=== PATIENT | male | born 1940 | race Caucasian/White ===

== ENCOUNTER → 2017-11-25 08:00 | Outpatient (CLI) | payer MEDICARE, BC, SELFPAY ==
[2017-11-25 09:13] LABS: Add Manual Diff / Slide Review NO; Basophils Percent Auto 0.2 % (0-2); Eosinophils Percent Auto 2.2 % (2-4); Hematocrit 43.7 % (41-53); Lymphocytes Percent Auto 24.3 % (25-40); Mean Corpuscular HGB Conc 34.2 % (30-36); Mean Corpuscular Hemoglobin 31.9 PG (26-34); Mean Corpuscular Volume 93.3 fL (80-100); Monocytes Percent Auto 7.8 % (3-14); Neutrophils Absolute Auto 5200 /uL (3000-5900); Neutrophils Percent Auto 65.5 % (50-75); Platelet Count 247 X10^3/uL (150-400); Red Blood Cell Count 4.69 X10^6/uL (4.5-5.9); Red Cell Distribution Width 13.6 % (11.6-14.8)
[2017-11-25 09:52] LABS: Alanine Aminotransferase 28 IU/L (21-72); Albumin 3.9 g/dL (3.5-5.0); Albumin Globulin Ratio 1.4 (1.0-2.8); Alkaline Phosphatase 75 U/L (38-126); Aspartate Aminotransferase 24 IU/L (17-59); BUN Creatinine Ratio 21.8 (6-22); Bilirubin Total 0.6 mg/dL (0.2-1.3); Calcium 9.4 mg/dL (8.4-10.2); Estimated Glomerular Filt Rate > 60.0 mL/min (>60); Globulin 2.7 g/dL (1.7-4.1); Glucose 101 mg/dL (80-110); HEMOLYSIS < 15 (0-50); Potassium 4.6 mmol/L (3.4-5.1); Sodium 141 mmol/L (137-145); Total Protein 6.6 g/dL (6.3-8.2)
[2017-11-25 09:59] LABS: Uric Acid 8.5 mg/dL (3.5-8.5)
[2017-11-25 10:37] LABS: Cholesterol 177 mg/dL (140-199); HDL Cholesterol 71 mg/dL (40-60); LDL Cholesterol Calculated 96 mg/dL (<100); Triglycerides 50 mg/dL (35-150)
== END ==
PROVIDERS: Specialist/Technologist Athletic Trainer; Family Provider Internal Medicine; PCP Internal Medicine; Visit Provider Dermatology
DX: I10 Essential (primary) hypertension (principal); E78.00 Pure hypercholesterolemia, unspecified; Z79.899 Other long term (current) drug therapy; M12.9 Arthropathy, unspecified; L40.9 Psoriasis, unspecified
CPT/HCPCS: 36415; 80053; 80061; 83735; 84550; 85025

== ENCOUNTER → 2018-12-01 07:56 | Outpatient (CLI) | payer MEDICARE, BC, SELFPAY ==
[2018-12-01 09:17] LABS: Alanine Aminotransferase 21 IU/L (21-72); Albumin 3.9 g/dL (3.5-5.0); Albumin Globulin Ratio 1.6 (1.0-2.8); Alkaline Phosphatase 73 U/L (38-126); Aspartate Aminotransferase 22 IU/L (17-59); BUN Creatinine Ratio 18.2 (6-22); Bilirubin Total 0.3 mg/dL (0.2-1.3); Blood Urea Nitrogen 20 mg/dL (9-20); Calcium 9.2 mg/dL (8.4-10.2); Carbon Dioxide 29 mmol/L (22-32); Chloride 102 mmol/L (98-107); Cholesterol 166 mg/dL (140-199); Estimated Glomerular Filt Rate > 60.0 mL/min (>60); Globulin 2.5 g/dL (1.7-4.1); Glucose 99 mg/dL (80-110); HDL Cholesterol 60 mg/dL (40-60); HEMOLYSIS < 15 (0-50); LDL Cholesterol Calculated 95 mg/dL (<100); Potassium 4.4 mmol/L (3.4-5.1); Sodium 139 mmol/L (137-145); Total Protein 6.4 g/dL (6.3-8.2); Triglycerides 54 mg/dL (35-150)
== END ==
PROVIDERS: Visit Provider Internal Medicine
DX: I10 Essential (primary) hypertension (principal); E78.00 Pure hypercholesterolemia, unspecified
CPT/HCPCS: 36415; 80053; 80061

== ENCOUNTER → 2020-02-07 08:05 | Outpatient (CLI) | payer MEDICARE, OTHER, SELFPAY ==
[2020-02-07 09:00] LABS: Add Manual Diff / Slide Review NO; Basophils Absolute Auto 100 /uL (0-100); Basophils Percent Auto 0.9 % (0-2); Eosinophils Absolute Auto 200 /uL (0-450); Eosinophils Percent Auto 2.7 % (2-4); Hematocrit 43.3 % (41-53); Hemoglobin 14.6 g/dL (13.5-17.5); Lymphocytes Absolute Auto 1800 /uL (1100-4500); Lymphocytes Percent Auto 27.2 % (25-40); Mean Corpuscular HGB Conc 33.7 % (30-36); Mean Corpuscular Volume 94.8 fL (80-100); Monocytes Absolute Auto 600 /uL (0-900); Monocytes Percent Auto 9.3 % (3-14); Neutrophils Absolute Auto 3900 /uL (1500-7000); Neutrophils Percent Auto 59.9 % (50-75); Platelet Count 232 X10^3/uL (150-400); Red Blood Cell Count 4.57 X10^6/uL (4.5-5.9); Red Cell Distribution Width 13.8 % (11.6-14.8); White Blood Cell Count 6.6 X10^3/uL (4.5-11.0)
[2020-02-07 09:37] LABS: Alanine Aminotransferase 23 IU/L (<50); Albumin 4.2 g/dL (3.5-5.0); Albumin Globulin Ratio 1.6 (1.0-2.8); Alkaline Phosphatase 65 U/L (38-126); Aspartate Aminotransferase 34 IU/L (17-59); BUN Creatinine Ratio 20.2 (6-22); Bilirubin Total 0.7 mg/dL (0.2-1.3); Blood Urea Nitrogen 22 mg/dL (9-20); Calcium 9.5 mg/dL (8.4-10.2); Carbon Dioxide 28 mmol/L (22-32); Chloride 104 mmol/L (98-107); Cholesterol 166 mg/dL (140-199); Estimated Glomerular Filt Rate > 60.0 mL/min (>60); Globulin 2.6 g/dL (1.7-4.1); Glucose 108 mg/dL (80-110); HDL Cholesterol 63 mg/dL (40-60); HEMOLYSIS 35 (0-50); LDL Cholesterol Calculated 87 mg/dL (<100); Potassium 4.6 mmol/L (3.4-5.1); Sodium 138 mmol/L (137-145); Total Protein 6.8 g/dL (6.3-8.2); Triglycerides 79 mg/dL (35-150)
== END ==
PROVIDERS: PCP Internal Medicine; Referring Provider Internal Medicine; Visit Provider Internal Medicine
DX: E78.00 Pure hypercholesterolemia, unspecified (principal); I10 Essential (primary) hypertension
CPT/HCPCS: 36415; 80053; 80061; 85025

== ENCOUNTER → 2020-08-01 12:52 | Outpatient (CLI) | payer MEDICARE, OTHER, SELFPAY ==
[2020-08-01] MEDS: COVID-19 VACC #1, MRNA(MOD) 100 MCG/0.5 ML VIAL IM (12:57)
== END ==
PROVIDERS: PCP Internal Medicine; Visit Provider Internal Medicine
DX: Z23 Encounter for immunization (principal)
CPT/HCPCS: 0011A; 91301

== ENCOUNTER → 2020-08-29 13:09 | Outpatient (CLI) | payer MEDICARE, OTHER, SELFPAY ==
[2020-08-29] MEDS: COVID-19 VACC #2, MRNA(MOD) 100 MCG/0.5 ML VIAL IM (13:17)
== END ==
PROVIDERS: PCP Internal Medicine; Visit Provider Internal Medicine
DX: Z23 Encounter for immunization (principal)
CPT/HCPCS: 0012A; 91301

== ENCOUNTER → 2020-12-28 14:40 | Outpatient (CLI) | payer MEDICARE, OTHER, SELFPAY | PROVIDERS: PCP Internal Medicine; Referring Provider Physician Assistant; Visit Provider Physician Assistant | DX: R19.7 Diarrhea, unspecified (principal) | CPT/HCPCS: 87045; 87177; 87899 ==

== ENCOUNTER → 2021-02-07 08:12 | Outpatient (CLI) | payer MEDICARE, OTHER, SELFPAY ==
[2021-02-07 09:22] LABS: Add Manual Diff / Slide Review NO; Basophils Absolute Auto 0 /uL (0-100); Basophils Percent Auto 0.5 % (0-2); Eosinophils Absolute Auto 200 /uL (0-450); Eosinophils Percent Auto 2.6 % (2-4); Hematocrit 41.6 % (41-53); Hemoglobin 14.1 g/dL (13.5-17.5); Lymphocytes Absolute Auto 1700 /uL (1100-4500); Lymphocytes Percent Auto 26.6 % (25-40); Mean Corpuscular HGB Conc 33.9 % (30-36); Mean Corpuscular Hemoglobin 32.1 PG (26-34); Mean Corpuscular Volume 94.7 fL (80-100); Monocytes Absolute Auto 600 /uL (0-900); Monocytes Percent Auto 9.7 % (3-14); Neutrophils Absolute Auto 3900 /uL (1500-7000); Neutrophils Percent Auto 60.6 % (50-75); Platelet Count 240 X10^3/uL (150-400); Red Blood Cell Count 4.39 X10^6/uL (4.5-5.9); Red Cell Distribution Width 13.8 % (11.6-14.8); White Blood Cell Count 6.4 X10^3/uL (4.5-11.0)
[2021-02-07 09:48] LABS: Creatinine Urine Random 168.3 mg/dL
[2021-02-07 09:49] LABS: Alanine Aminotransferase 23 IU/L (<50); Albumin Globulin Ratio 1.7 (1.0-2.8); Alkaline Phosphatase 62 U/L (38-126); Aspartate Aminotransferase 28 IU/L (17-59); BUN Creatinine Ratio 19.8 (6-22); Bilirubin Total 0.5 mg/dL (0.2-1.3); Blood Urea Nitrogen 21 mg/dL (9-20); Calcium 9.5 mg/dL (8.4-10.2); Carbon Dioxide 30 mmol/L (22-32); Chloride 104 mmol/L (98-107); Cholesterol 173 mg/dL (140-199); Estimated Glomerular Filt Rate > 60.0 mL/min (>60); Globulin 2.4 g/dL (1.7-4.1); Glucose 102 mg/dL (80-110); HDL Cholesterol 66 mg/dL (40-60); HEMOLYSIS < 15 (0-50); LDL Cholesterol Calculated 90 mg/dL (<100); Potassium 4.3 mmol/L (3.4-5.1); Sodium 139 mmol/L (137-145); Total Protein 6.4 g/dL (6.3-8.2); Triglycerides 83 mg/dL (35-150)
[2021-02-07 10:06] LABS: Microalbumi Creatinin Ratio Ur 4.7 ug/mg CR (<30); Microalbumin Urine Random 0.8 mg/dL (0-1.6)
[2021-02-07 10:17] LABS: TSH w/ Reflex to FT4 1.19 uIU/mL (0.47-4.68)
[2021-02-07 10:26] LABS: Prostate Specific Antigen Scrn < 0.064 ng/mL (0.1-4.0)
== END ==
PROVIDERS: PCP Family Medicine; Referring Provider Family Medicine; Visit Provider Family Medicine
DX: I10 Essential (primary) hypertension (principal); Z12.5 Encounter for screening for malignant neoplasm of prostate; L40.50 Arthropathic psoriasis, unspecified
CPT/HCPCS: 36415; 80053; 80061; 82043; 82570; 84443; 85025; G0103

== ENCOUNTER 2021-02-15 13:45 | Outpatient (RCR) | payer MEDICARE, OTHER, SELFPAY ==
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
--- NOTE | 2021-01-30 16:54 | PT.OPPOC ---
Physical, Occupational & Speech Therapy At [facility] Current Diagnoses Lumbago with sciatica, unspecified side (01/30/21) Difficulty in walking, not elsewhere classified (01/30/21) Visit Care Team Role Provider Type Mychal Becker MD Attending Provider Physician Primary Care Provider Referring Provider Specialty: Family Practice Address: [address] [place] [address], [facility] Email: [email or web address] Plan Of Care PT-OP-T Assessment and Plan Start: 01/30/21 12:43 Freq: Status: Active Protocol: Document 01/30/21 16:00 AW (Rec: 01/30/21 16:54 AW [email or web address]) Physical Therapy Assessment Rehab Potential Rehabilitation Potential Good Evaluation Complexity Number of Personal Factors/Comorbidities 1-2 Number of Body Systems Impaired 1-2 Clinical Presentation at Evaluation Stable Impairments Impairments Gait,Pain,ROM,Sensation,Soft Tissue Mobility,Strength Goals Three Impairment strength Short Term Goal (STG) Pt will reduce pain with resisted internal rotation of the right hip to 2/10 or less STG Duration 4 weeks - 02/27/21 Senior Living Goal (LTG) Pt will improve hip extension and abduction strength to 4+/5 or greater for improved gait mechanics LTG Duration 8 weeks - 03/27/21 Two Impairment painful gait Short Term Goal (STG) Pt will walk upon waking with 4/10 or less pain at least 5 days per week. STG Duration 4 weeks - 02/27/21 Consultant Technology Goal (LTG) Pt will walk upon waking with 1/10 or less pain at least 5 days per week. LTG Duration 8 weeks - 03/27/21 One Impairment Pt lacks appropriate HEP Short Term Goal (STG) Pt will be educated in pain relief techniques and exercise to manage his back and leg pain independently. STG Duration 4 weeks - 02/27/21 Senior Living Goal (LTG) Pt will be independent with HEP to support therapy services provided in clinic. LTG Duration 8 weeks - 03/27/21 Assessment Summary Assessment Konrad is a 80 yo man seen in outpatient physical therapy with complaints of back and leg pain affecting his ability to walk in the mornings primarily. He presents with generalized hip weakness, decreased mobility of the lower lumbar spine, and moderate tone in right hip external rotation musculature which are likely contributing to his ongoing pain. His slump test is mildly positive in the most provocative position and confirmed positive when walking after test positioning . He would benefit from skilled PT to address these impairments and normalize his gait pattern in order to improve his ability to participate in daily activities and improve his overall standing and walking tolerance. Physical Therapy Plan Frequency and Duration Frequency of Treatment 1-2x/week Duration of Treatment 2 months Plan of Care Start Date 01/30/21 Plan of Care End Date 04/02/21 Therapeutic Interventions Therapeutic Interventions Balance Training,Gait Training ,Home Exercise Program,Joint Mobilizations,Manual Therapy, Neuromuscular Re-education, Patient/Caregiver Education, Self-Care/Home Management, Sensory Integration,Soft Tissue Mobilization, Therapeutic Activities, Therapeutic Exercises Modalities Electric Stimulation,Hot Packs Next Visit Focus/Plan Next Note Type Treatment Note Next Visit Plan assess response to initial HEP ; manual as tolerated to include lumbar traction; gentle AROM and strength for L /S and B hips Plan of Care Dates Plan of Care Start Date 01/30/21 Plan of Care End Date 04/02/21 Electronically Signed by: Mariaa Arciniega, PT 01/30/21 0991 Please Sign and Return: I have reviewed this Plan of Care and certify that the skilled therapy services above are required to meet the patient?s needs. Physician Signature Date Printed Name and Credentials Clinical Instructor Signature Printed Name and Credentials
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
== END 2021-02-22 07:56 | disposition home or self-care (01) ==
LOC: PHYS 13:45
PROVIDERS: PCP Family Medicine; Referring Provider Family Medicine; Visit Provider Family Medicine
DX: M54.40 Lumbago with sciatica, unspecified side (principal); R26.2 Difficulty in walking, not elsewhere classified
CPT/HCPCS: 97110; 97140; 97161

== ENCOUNTER → 2021-03-02 14:25 | Outpatient (CLI) | payer MEDICARE, OTHER, SELFPAY ==
--- NOTE | 2021-03-02 14:26 | DI.RAD.S_ITS ---
PROCEDURE: XR LUMBAR SPINE 2-3V INDICATIONS: right hip and back pain TECHNIQUE: 3 views of the lumbar spine were acquired. COMPARISON: None. FINDINGS: Bones: 5 [id number] vertebrae are present. Grade 1 spondylolisthesis L4-L5 and L5-S1. Multilevel disc degeneration, most notably and moderate at the L4-L5 level. Moderate L4-L5 and L5-S1. No vertebral body compression fractures. No suspicious bony lesions. Bilateral hip arthroplasties incompletely visualized. Soft tissues: Overlying bowel gas pattern is normal. No suspicious soft tissue calcifications. Vascular calcifications indicate atherosclerosis. Pelvic surgical clips. IMPRESSION: Multilevel spondylosis Dictated by: iVrgilio Perry RRA Interpreted: Bruce Willson MD on 03/02/2021 at 15:06 Transcribed by: RADHA on 03/02/2021 at 15:09 Approved by: Bruce Willson M.D. on 03/02/2021 at 16:03
--- NOTE | 2021-03-02 14:26 | DI.RAD.S_ITS ---
PROCEDURE: XR HIP W PEL IF DONE RT 2V INDICATIONS: right hip and back pain TECHNIQUE: AP pelvis and lateral view of the right hip acquired. COMPARISON: [facility], CR, XR HIP 2 VIEWS BILATERAL, 10/28/2017, 17:41. FINDINGS: Bones: Patient is status post prior bilateral total hip arthroplasty, with hardware components in expected positions. The hip joint appears congruent. The visualized bony structures appear intact. No gross hardware loosening or failure. Soft tissues: Surgical clips are noted in lower pelvis bilaterally . No suspicious soft tissue densities. IMPRESSION: Prior bilateral total hip arthroplasty. Anatomic right hip alignment. No fracture or dislocation. No gross hardware complication. Dictated by: Bruce Willson M.D. on 03/02/2021 at 15:55 Approved by: Bruce Willson M.D. on 03/02/2021 at 15:56
== END ==
PROVIDERS: PCP Family Medicine; Referring Provider Family Medicine; Visit Provider Family Medicine
DX: M54.41 Lumbago with sciatica, right side (principal); M47.816 Spondylosis without myelopathy or radiculopathy, lumbar region; M25.551 Pain in right hip; G89.29 Other chronic pain
CPT/HCPCS: 72100; 73502

== ENCOUNTER → 2021-03-16 09:00 | Outpatient (CLI) | payer MEDICARE, OTHER, SELFPAY ==
--- NOTE | 2021-03-16 09:01 | DI.MRI.S_ITS ---
PROCEDURE: MR LUMBAR SPINE WO CON INDICATIONS: chronic back pain with radiculopathy TECHNIQUE: Noncontrast sagittal T1 spin echo and T2 fast echo, sagittal STIR, axial T1 and T2 fast spin echo through the lumbar spine. In cases with scoliosis, additional coronal T2 fast spin echo may be performed. COMPARISON: [facility], CR, XR LUMBAR SPINE 2-3V, 03/02/2021, 14:20. FINDINGS: Image quality: Excellent. Alignment and Curvature: 5 lumbar type vertebral bodies are present by plain film. There is mild grade 1 retrolisthesis of L1 on L2 and L2 on L3. Mild grade 1 anterolisthesis of L3 on L4, L4 on L5, and L5 on S1. Bone Marrow: Marrow is of normal overall signal. No acute vertebral body compression fractures. Spinal Cord: Conus medullaris terminates at the L1-L2 disc space level. Visualized cord demonstrates normal signal and size. Paraspinous Soft Tissues: No paravertebral masses. T12-L1: Mild disc height loss and desiccation. Mild facet and ligamentum flavum hypertrophy. No significant canal, or foraminal stenosis. L1-L2: Mild disc desiccation and diffuse disc bulge. Mild facet hypertrophy bilaterally. Mild canal stenosis. Mild bilateral foraminal stenosis. L2-L3: Moderate disc height loss and desiccation. Mild diffuse disc bulge. Mild facet and ligamentum flavum hypertrophy. Mild epidural lipomatosis. Mild canal stenosis. Mild bilateral foraminal stenosis. L3-L4: Moderate disc height loss and desiccation. Mild diffuse disc bulge. Mild facet and ligamentum flavum hypertrophy. Mild epidural lipomatosis. Moderate canal stenosis. Moderate bilateral foraminal stenosis. L4-L5: Moderate disc height loss and desiccation. Mild diffuse disc bulge. Moderate facet and ligamentum flavum hypertrophy. Severe canal stenosis. Severe right and moderate to severe left foraminal stenosis. Right greater than left L4 nerve root compression. L5-S1: Mild disc height loss and desiccation. Mild diffuse disc bulge. Mild bilateral facet hypertrophy. Mild canal stenosis. No foraminal stenosis. IMPRESSION: 1. Multilevel degenerative disc and facet disease, as well as ligamentum flavum hypertrophy and epidural lipomatosis. 2. Multilevel canal stenoses, worst at L4-L5, where there is severe canal stenosis. 3. Multilevel foraminal stenoses, worst at L4-L5 where there is associated intraforaminal nerve root compression. Recommend correlation with clinical symptoms to ascertain relevance of this finding. Dictated by: Sue Yan M.D. on 03/16/2021 at 10:02 Approved by: Sue Yan M.D. on 03/16/2021 at 10:08
== END ==
PROVIDERS: PCP Family Medicine; Referring Provider Family Medicine; Visit Provider Family Medicine
DX: M51.16 Intervertebral disc disorders with radiculopathy, lumbar region; M51.17 Intervertebral disc disorders with radiculopathy, lumbosacral region; M48.061 Spinal stenosis, lumbar region without neurogenic claudication; M48.07 Spinal stenosis, lumbosacral region; E88.2 Lipomatosis, not elsewhere classified; G89.29 Other chronic pain
CPT/HCPCS: 72148

== ENCOUNTER → 2021-10-23 10:16 | Outpatient (CLI) | payer MEDICARE, OTHER, SELFPAY ==
--- NOTE | 2021-10-23 | DI.RAD.S_ITS ---
PROCEDURE: XR LUMBAR SPINE MIN 4V INDICATIONS: lumbar radiculopathy, degenerative disc disease. TECHNIQUE: 5 views of the lumbar spine acquired, including flexion and extension views. COMPARISON: [facility], , XR LUMBAR SPINE 2-3V, 03/02/2021, 14:20. FINDINGS: Bones: 5 nonrib-bearing vertebrae are present. Grade 1 anterolisthesis at L 3 through 5, measuring up to 4.9 mm. No vertebral body compression fractures. No suspicious bony lesions. Facet arthrosis, most prominent at L3 -S1. Mild to moderate disc height loss at L4-5. Bilateral hip arthroplasties are partially imaged. Soft tissues: Overlying bowel gas pattern is normal. No suspicious soft tissue calcifications. Flexion/extension: There is normal range of motion, with preserved alignment. IMPRESSION: Lumbar spine degeneration as detailed above Dictated by: Jermaine Kenney M.D. on 10/23/2021 at 12:32 Approved by: Jermaine Kenney M.D. on 10/23/2021 at 12:34
== END ==
PROVIDERS: PCP Family Medicine; Referring Provider Physician Assistant Surgical; Visit Provider Physician Assistant Surgical
DX: M51.16 Intervertebral disc disorders with radiculopathy, lumbar region (principal); M47.26 Other spondylosis with radiculopathy, lumbar region; M47.27 Other spondylosis with radiculopathy, lumbosacral region
CPT/HCPCS: 72110

== ENCOUNTER → 2021-12-07 16:38 | Outpatient (CLI) | payer MEDICARE, OTHER, SELFPAY ==
--- NOTE | 2021-12-07 16:41 | DI.MRI.S_ITS ---
PROCEDURE: MR LUMBAR SPINE WO CON INDICATIONS: Radiculopathy, lumbar region TECHNIQUE: Noncontrast sagittal T1 spin echo and T2 fast echo, sagittal STIR, and T2 fast spin echo through the lumbar spine. In cases with scoliosis, additional coronal T2 fast spin echo may be performed. COMPARISON: [facility], MR, MR LUMBAR SPINE WO CON, 03/16/2021, 9:16. FINDINGS: Image quality: Excellent. Alignment and Curvature: 5 lumbar type vertebral bodies are present by plain film. 3 mm of anterolisthesis of L3 on L4 and L4 on L5. 2 mm of anterolisthesis of L5 on S1. Bone Marrow: Marrow is of normal overall signal. No acute vertebral body compression fractures. Mild reactive signal throughout the endplates of the lumbar and lower thoracic spine. To T12 and L2 hemangiomata are present. Spinal Cord: Conus medullaris terminates at the L1-L2 disc space level. Visualized cord demonstrates normal signal and size. Paraspinous Soft Tissues: No paravertebral masses. T12-L1: Mild disc height loss and desiccation. Mild diffuse disc bulge. Mild facet and ligamentum flavum hypertrophy. Mild canal stenosis. Mild bilateral foraminal stenosis. No significant change. L1-L2: Mild disc height loss and desiccation. Mild diffuse disc bulge. Mild bilateral facet hypertrophy. Mild canal stenosis. Mild bilateral foraminal stenosis. No significant change. L2-L3: Mild disc height loss and desiccation. Mild diffuse disc bulge. Mild facet and ligamentum flavum hypertrophy. Mild epidural lipomatosis. Mild canal stenosis. Mild bilateral foraminal stenosis. No significant change. L3-L4: Moderate disc height loss and desiccation. Mild diffuse disc bulge. Mild facet and ligamentum flavum hypertrophy. Mild epidural lipomatosis. There is increased, moderate to severe canal stenosis with narrowing of the AP diameter of the canal to 9 mm. There is moderate subarticular foraminal stenosis, as before. L4-L5: Moderate disc height loss and desiccation. Mild diffuse disc bulge. Moderate facet and ligamentum flavum hypertrophy. Severe canal stenosis. Moderate to severe bilateral foraminal stenosis with right greater than left L4 nerve root compression. No significant change. L5-S1: Mild disc height loss and desiccation. Mild diffuse disc bulge. Mild bilateral facet hypertrophy. Mild canal stenosis. No foraminal stenosis. IMPRESSION: 1. Multilevel degenerative disc and facet disease, as well as ligamentum flavum hypertrophy and epidural lipomatosis. 2. Multilevel canal stenoses, worst at L3-L4 and L4-L5 as described above. 3. Multilevel foraminal stenoses, worst at L4-L5 where there is associated intraforaminal nerve root compression. Recommend correlation with clinical symptoms to ascertain relevance of this finding. Dictated by: Sue Yan M.D. on 12/10/2021 at 8:29 Approved by: Sue Yan M.D. on 12/10/2021 at 8:39
== END ==
PROVIDERS: PCP Family Medicine; Referring Provider Neurological Surgery; Visit Provider Neurological Surgery
DX: M51.16 Intervertebral disc disorders with radiculopathy, lumbar region (principal); M51.17 Intervertebral disc disorders with radiculopathy, lumbosacral region; M48.061 Spinal stenosis, lumbar region without neurogenic claudication; M48.07 Spinal stenosis, lumbosacral region
CPT/HCPCS: 72148

== ENCOUNTER → 2022-01-09 08:18 | Outpatient (CLI) | payer MEDICARE, OTHER, SELFPAY ==
[2022-01-09 08:58] LABS: Hematocrit 42.1 % (41-53); Hemoglobin 14.3 g/dL (13.5-17.5); Mean Corpuscular Hemoglobin 32.1 PG (26-34); Mean Corpuscular Volume 94.5 fL (80-100); Platelet Count 245 X10^3/uL (150-400); Red Blood Cell Count 4.46 X10^6/uL (4.5-5.9); Red Cell Distribution Width 13.7 % (11.6-14.8); White Blood Cell Count 7.1 X10^3/uL (4.5-11.0)
[2022-01-09 09:25] LABS: Alanine Aminotransferase 20 IU/L (<50); Albumin 4.3 g/dL (3.5-5.0); Albumin Globulin Ratio 1.7 (1.0-2.8); Alkaline Phosphatase 67 U/L (38-126); Aspartate Aminotransferase 27 IU/L (17-59); BUN Creatinine Ratio 20.7 (6-22); Bilirubin Total 0.7 mg/dL (0.2-1.3); Blood Urea Nitrogen 23 mg/dL (9-20); Calcium 9.3 mg/dL (8.4-10.2); Carbon Dioxide 29 mmol/L (22-32); Chloride 101 mmol/L (98-107); Estimated Glomerular Filt Rate > 60 mL/min (>60); Globulin 2.6 g/dL (1.7-4.1); Glucose 111 mg/dL (80-110); HEMOLYSIS < 15 (0-50); Potassium 4.3 mmol/L (3.4-5.1); Sodium 137 mmol/L (137-145); Total Protein 6.9 g/dL (6.3-8.2)
== END ==
PROVIDERS: PCP Family Medicine; Referring Provider Family Medicine; Visit Provider Family Medicine
DX: Z01.818 Encounter for other preprocedural examination (principal); I10 Essential (primary) hypertension
CPT/HCPCS: 36415; 80053; 85027; 93005; 93010

== ENCOUNTER → 2022-02-27 08:45 | Outpatient (CLI) | payer MEDICARE, OTHER, SELFPAY ==
[2022-02-27 09:16] LABS: Add Manual Diff / Slide Review NO; Basophils Absolute Auto 100 /uL (0-100); Basophils Percent Auto 0.8 % (0-2); Eosinophils Absolute Auto 200 /uL (0-450); Eosinophils Percent Auto 2.5 % (2-4); Hematocrit 40.9 % (41-53); Lymphocytes Absolute Auto 1700 /uL (1100-4500); Lymphocytes Percent Auto 24.4 % (25-40); Mean Corpuscular HGB Conc 34.3 % (30-36); Mean Corpuscular Hemoglobin 32.4 PG (26-34); Mean Corpuscular Volume 94.5 fL (80-100); Monocytes Absolute Auto 700 /uL (0-900); Monocytes Percent Auto 10.3 % (3-14); Neutrophils Absolute Auto 4400 /uL (1500-7000); Platelet Count 242 X10^3/uL (150-400); Red Blood Cell Count 4.33 X10^6/uL (4.5-5.9); Red Cell Distribution Width 13.9 % (11.6-14.8); White Blood Cell Count 7.2 X10^3/uL (4.5-11.0)
[2022-02-27 09:27] LABS: Alanine Aminotransferase 21 IU/L (<50); Albumin 4.2 g/dL (3.5-5.0); Albumin Globulin Ratio 1.6 (1.0-2.8); Alkaline Phosphatase 75 U/L (38-126); Aspartate Aminotransferase 25 IU/L (17-59); BUN Creatinine Ratio 21.6 (6-22); Bilirubin Total 0.4 mg/dL (0.2-1.3); Blood Urea Nitrogen 24 mg/dL (9-20); Calcium 8.8 mg/dL (8.4-10.2); Carbon Dioxide 26 mmol/L (22-32); Chloride 104 mmol/L (98-107); Cholesterol 161 mg/dL (140-199); Estimated Glomerular Filt Rate > 60 mL/min (>60); Globulin 2.6 g/dL (1.7-4.1); Glucose 110 mg/dL (80-110); HDL Cholesterol 58 mg/dL (40-60); HEMOLYSIS < 15 (0-50); LDL Cholesterol Calculated 91 mg/dL (<100); Potassium 4.4 mmol/L (3.4-5.1); Sodium 139 mmol/L (137-145); Total Protein 6.8 g/dL (6.3-8.2); Triglycerides 62 mg/dL (35-150)
[2022-02-27 09:55] LABS: Prostate Specific Antigen Scrn < 0.064 ng/mL (0.1-4.0)
[2022-02-27 09:59] LABS: TSH w/ Reflex to FT4 1.04 uIU/mL (0.47-4.68)
[2022-02-27 10:09] LABS: Creatinine Urine Random 141.9 mg/dL
[2022-02-27 10:14] LABS: Microalbumin Urine Random < 0.6 mg/dL (0-1.6)
== END ==
PROVIDERS: PCP Family Medicine; Referring Provider Family Medicine; Visit Provider Family Medicine
DX: Z01.818 Encounter for other preprocedural examination (principal); E78.5 Hyperlipidemia, unspecified; Z12.5 Encounter for screening for malignant neoplasm of prostate; I10 Essential (primary) hypertension; G25.0 Essential tremor; L40.50 Arthropathic psoriasis, unspecified
CPT/HCPCS: 36415; 80053; 80061; 82043; 82570; 84443; 85025; G0103

== ENCOUNTER → 2022-11-22 08:24 | Outpatient (CLI) | payer MEDICARE, OTHER, SELFPAY ==
--- NOTE | 2022-11-22 08:27 | DI.RAD.S_ITS ---
PROCEDURE: XR CERVICAL SPINE 2V OR 3V INDICATIONS: bilateral hand numbness TECHNIQUE: Three view(s) of the cervical spine were acquired. COMPARISON: None. FINDINGS: Bones: No fractures or dislocations to the C6 level. Straightening of the normal cervical lordosis. Grade 1 anterolisthesis C2 on three. Severe disc height loss C5-6 with trace retrolisthesis. Moderate disc height loss at other visible levels. Moderate facet arthropathy, most prominent on the left at C4-5 and C5-6. The lateral masses of C1 appear intact on the odontoid view. No suspicious bony lesions. Soft tissues: No prevertebral soft tissue swelling. Atherosclerotic calcification projects over the left carotid bulb. IMPRESSION: 1. Multilevel cervical disc height loss. 2. Overall loss of cervical lordosis, potentially secondary to facet arthropathy and trace multilevel listhesis as described. Dictated by: Shelley Macedo M.D. on 11/22/2022 at 12:13 Approved by: Shelley Macedo M.D. on 11/22/2022 at 12:17
== END ==
PROVIDERS: PCP Family Medicine; Referring Provider Family Medicine; Visit Provider Family Medicine
DX: R20.0 Anesthesia of skin (principal); R20.2 Paresthesia of skin; M43.6 Torticollis
CPT/HCPCS: 72040

== ENCOUNTER → 2022-11-26 07:11 | Outpatient (CLI) | payer MEDICARE, OTHER, SELFPAY ==
--- NOTE | 2022-11-26 07:14 | DI.US.S_ITS ---
PROCEDURE: US CAROTID DOPPLER BI INDICATIONS: carotid artery atherosclerosis TECHNIQUE: Color and pulse Doppler interrogation was performed of both carotid systems, with image documentation and velocity measurements. COMPARISON: None. FINDINGS: Stenosis calculations are based on SRU (Society of Radiologists in Ultrasound) criteria. Right side: Brachial blood pressure: 113/68 mm Hg. Common carotid artery peak systolic velocity: 88 cm/sec. Internal carotid artery peak systolic velocity: 96 cm/sec. Internal carotid artery end diastolic velocity: 18 cm/sec. External carotid artery peak systolic velocity: 85 cm/sec. ICA/CCA peak systolic ratio: 1.1 . Campbell scale imaging description: Mild plaque at the bifurcation Percent internal carotid artery stenosis: Less than 50% . Vertebral artery: Flow direction is antegrade. Left side: Brachial blood pressure: 132/73 mm Hg. Common carotid artery peak systolic velocity: 107 cm/sec. Internal carotid artery peak systolic velocity: 75 cm/sec. Internal carotid artery end diastolic velocity: 15 cm/sec. External carotid artery peak systolic velocity: 74 cm/sec. ICA/CCA peak systolic ratio: 0.7 . Campbell scale imaging description: Mild plaque at the bifurcation Percent internal carotid artery stenosis: Less than 50% . Vertebral artery: Flow direction is antegrade. IMPRESSION: Less than 50% stenosis of the internal carotid arteries bilaterally. Dictated by: Jazlyn Dunlap M.D. on 12/03/2022 at 17:16 Approved by: Jazlyn Dunlap M.D. on 12/03/2022 at 17:17
== END ==
PROVIDERS: PCP Family Medicine; Referring Provider Family Medicine; Visit Provider Family Medicine
DX: I65.23 Occlusion and stenosis of bilateral carotid arteries (principal)
CPT/HCPCS: 93880

== ENCOUNTER → 2022-12-12 08:14 | Outpatient (CLI) | payer MEDICARE, OTHER, SELFPAY | PROVIDERS: Absent Provider Family Medicine; Family Provider Family Medicine; PCP Family Medicine; Referring Provider Family Medicine; Visit Provider Family Medicine | DX: R20.0 Anesthesia of skin (principal); R20.2 Paresthesia of skin; M43.6 Torticollis | CPT/HCPCS: 95885; 95886; 95913 ==

== ENCOUNTER → 2023-02-27 10:19 | Outpatient (CLI) | payer MEDICARE, OTHER, SELFPAY ==
[2023-02-27 12:32] LABS: Add Manual Diff / Slide Review NO; Basophils Absolute Auto 0 /uL (0-100); Basophils Percent Auto 0.7 % (0-2); Eosinophils Absolute Auto 100 /uL (0-450); Eosinophils Percent Auto 1.8 % (2-4); Hematocrit 41.2 % (41-53); Hemoglobin 14.1 g/dL (13.5-17.5); Lymphocytes Absolute Auto 1400 /uL (1100-4500); Lymphocytes Percent Auto 22.2 % (25-40); Mean Corpuscular HGB Conc 34.2 % (30-36); Mean Corpuscular Hemoglobin 34.2 PG (26-34); Mean Corpuscular Volume 100.1 fL (80-100); Monocytes Absolute Auto 500 /uL (0-900); Monocytes Percent Auto 8.6 % (3-14); Neutrophils Absolute Auto 4200 /uL (1500-7000); Neutrophils Percent Auto 66.7 % (50-75); Platelet Count 283 X10^3/uL (150-400); Red Blood Cell Count 4.11 X10^6/uL (4.5-5.9); White Blood Cell Count 6.4 X10^3/uL (4.5-11.0)
[2023-02-27 12:46] LABS: Creatinine Urine Random 98.1 mg/dL
[2023-02-27 12:55] LABS: Alanine Aminotransferase 26 IU/L (<50); Albumin 4.2 g/dL (3.5-5.0); Albumin Globulin Ratio 1.5 (1.0-2.8); Alkaline Phosphatase 66 U/L (38-126); Aspartate Aminotransferase 29 IU/L (17-59); BUN Creatinine Ratio 17.9 (6-22); Bilirubin Total 0.6 mg/dL (0.2-1.3); Blood Urea Nitrogen 20 mg/dL (9-20); Calcium 9.1 mg/dL (8.4-10.2); Carbon Dioxide 28 mmol/L (22-32); Chloride 101 mmol/L (98-107); Cholesterol 170 mg/dL (140-199); Estimated Glomerular Filt Rate > 60 mL/min (>60); Globulin 2.8 g/dL (1.7-4.1); Glucose 91 mg/dL (80-110); HDL Cholesterol 53 mg/dL (40-60); HEMOLYSIS 17 (0-50); LDL Cholesterol Calculated 99 mg/dL (<100); Potassium 4.5 mmol/L (3.4-5.1); Sodium 137 mmol/L (137-145); Triglycerides 91 mg/dL (35-150)
[2023-02-27 13:04] LABS: Erythrocyte Sedimentation Rate 8 MM/HR (0-15)
[2023-02-27 13:05] LABS: C-Reactive Protein Quant < 0.5 mg/dL (<1.0)
[2023-02-27 13:14] LABS: Microalbumin Urine Random < 0.6 mg/dL (0-1.6)
[2023-02-27 13:33] LABS: Prostate Specific Antigen Scrn < 0.064 ng/mL (0.1-4.0)
== END ==
PROVIDERS: Family Provider Family Medicine; PCP Family Medicine; Referring Provider Internal Medicine Rheumatology; Visit Provider Internal Medicine Rheumatology
DX: Z00.00 Encounter for general adult medical examination without abnormal findings (principal); E78.2 Mixed hyperlipidemia; I10 Essential (primary) hypertension; Z12.5 Encounter for screening for malignant neoplasm of prostate; L40.50 Arthropathic psoriasis, unspecified; I65.23 Occlusion and stenosis of bilateral carotid arteries; E78.5 Hyperlipidemia, unspecified
CPT/HCPCS: 36415; 80053; 80061; 82043; 82570; 85025; 85651; 86140; G0103

== ENCOUNTER → 2024-01-29 16:58 | Outpatient (CLI) | payer MEDICARE, OTHER, SELFPAY ==
--- NOTE | 2024-01-29 16:59 | DI.MRI.S_ITS ---
PROCEDURE: MR LUMBAR SPINE WO CON INDICATIONS: LOW BACK PAIN TECHNIQUE: Noncontrast sagittal T1 spin echo and T2 fast echo, sagittal STIR, and T2 fast spin echo through the lumbar spine. In cases with scoliosis, additional coronal T2 fast spin echo may be performed. COMPARISON: [facility], MR, MR LUMBAR SPINE WO CON, 12/07/2021, 17:13. FINDINGS: Image quality: Excellent. Alignment and Curvature: Grade 1 anterolisthesis of L3 on L4 and L4 on L5. Laminectomy changes at L3-L4 and L4-L5. Bone Marrow: Marrow is of normal overall signal. No acute vertebral body compression fractures. Multiple lipid rich osseous hemangiomas. Spinal Cord: Conus medullaris terminates at the L1 level. Visualized cord demonstrates normal signal and size. Intervertebral discs: Multilevel disc desiccation with areas of height loss, worse at L4-L5. Paraspinous Soft Tissues: Fatty atrophy of the paraspinal muscles. T12-L1: No spinal canal stenosis. Mild bilateral foraminal narrowing. There is bilateral facet arthropathy. L1-L2: No spinal canal stenosis. Mild narrowing of the bilateral neural foramen. There is bilateral facet arthropathy. L2-L3: Dorsal disc bulge and ligamentum flavum hypertrophy result in mild narrowing of the spinal canal. Moderate right foraminal stenosis and mild left foraminal narrowing. There is bilateral facet arthropathy. L3-L4: No spinal canal stenosis. Moderate to severe bilateral foraminal stenosis . There is bilateral facet arthropathy. L4-L5: No spinal canal stenosis. Moderate to severe right foraminal stenosis and [id number] left foraminal stenosis. There is bilateral facet arthropathy. L5-S1: No spinal canal stenosis. No neural foraminal narrowing. There is bilateral facet arthropathy. IMPRESSION: 1. Multilevel degenerative disc disease of the lumbar spine as described above. The worst level is at L3-L4 which demonstrates moderate to severe bilateral foraminal stenosis. 2. Grade 1 anterolisthesis of L3 on L4 and L4 on L5. Dictated by: Otilio Aponte M.D. on 01/30/2024 at 10:58 Approved by: Otilio Aponte M.D. on 01/30/2024 at 11:20
== END ==
PROVIDERS: Family Provider Family Medicine; PCP Family Medicine; Referring Provider Orthopaedic Surgery Orthopaedic Trauma; Visit Provider Orthopaedic Surgery Orthopaedic Trauma
DX: M51.36 Other intervertebral disc degeneration, lumbar region (principal); M43.16 Spondylolisthesis, lumbar region; M47.816 Spondylosis without myelopathy or radiculopathy, lumbar region; M47.817 Spondylosis without myelopathy or radiculopathy, lumbosacral region; M48.061 Spinal stenosis, lumbar region without neurogenic claudication; M54.50 Low back pain, unspecified
CPT/HCPCS: 72148

== ENCOUNTER → 2024-03-05 08:13 | Outpatient (CLI) | payer MEDICARE, OTHER, SELFPAY ==
[2024-03-05 10:02] LABS: Add Manual Diff / Slide Review NO; Basophils Absolute Auto 0 /uL (0-100); Basophils Percent Auto 0.7 % (0-2); Eosinophils Absolute Auto 300 /uL (0-450); Eosinophils Percent Auto 4.1 % (2-4); Hematocrit 39.5 % (41-53); Hemoglobin 13.4 g/dL (13.5-17.5); Lymphocytes Absolute Auto 1200 /uL (1100-4500); Lymphocytes Percent Auto 17.6 % (25-40); Mean Corpuscular Hemoglobin 34.3 PG (26-34); Mean Corpuscular Volume 100.9 fL (80-100); Monocytes Absolute Auto 700 /uL (0-900); Monocytes Percent Auto 10.1 % (3-14); Neutrophils Absolute Auto 4700 /uL (1500-7000); Neutrophils Percent Auto 67.5 % (50-75); Platelet Count 253 X10^3/uL (150-400); Red Blood Cell Count 3.91 X10^6/uL (4.5-5.9); Red Cell Distribution Width 14.6 % (11.6-14.8)
[2024-03-05 11:02] LABS: Alanine Aminotransferase 22 IU/L (<50); Albumin Globulin Ratio 1.7 (1.0-2.8); Alkaline Phosphatase 76 U/L (38-126); Aspartate Aminotransferase 24 IU/L (17-59); BUN Creatinine Ratio 15.4 (6-22); Bilirubin Total 0.5 mg/dL (0.2-1.3); Blood Urea Nitrogen 21 mg/dL (9-20); Calcium 9.3 mg/dL (8.4-10.2); Carbon Dioxide 24 mmol/L (22-32); Chloride 105 mmol/L (98-107); Cholesterol 171 mg/dL (140-199); Estimated Glomerular Filt Rate 52 mL/min (>60); Globulin 2.3 g/dL (1.7-4.1); Glucose 97 mg/dL (80-110); HDL Cholesterol 67 mg/dL (40-60); HEMOLYSIS < 15 (0-50); LDL Cholesterol Calculated 87 mg/dL (<100); Potassium 4.3 mmol/L (3.4-5.1); Sodium 138 mmol/L (137-145); Total Protein 6.3 g/dL (6.3-8.2); Triglycerides 86 mg/dL (35-150)
[2024-03-05 11:26] LABS: Prostate Specific Antigen Scrn < 0.064 ng/mL (0.1-4.0)
== END ==
PROVIDERS: Family Provider Family Medicine; PCP Family Medicine; Referring Provider Family Medicine; Visit Provider Family Medicine
DX: Z12.5 Encounter for screening for malignant neoplasm of prostate (principal); E78.5 Hyperlipidemia, unspecified; G25.0 Essential tremor; I10 Essential (primary) hypertension; L40.50 Arthropathic psoriasis, unspecified; M48.07 Spinal stenosis, lumbosacral region; M48.061 Spinal stenosis, lumbar region without neurogenic claudication
CPT/HCPCS: 36415; 80053; 80061; 85025; G0103

== ENCOUNTER → 2024-04-06 10:14 | Outpatient (CLI) | payer MEDICARE, OTHER, SELFPAY ==
--- NOTE | 2024-04-06 10:16 | DI.CT.S_ITS ---
PROCEDURE: CT HIP RIGHT WITHOUT CON INDICATIONS: SI JOINT DYSFUNCTION TECHNIQUE: Noncontrast 3 mm axial sections acquired through the bony pelvis, with coronal and sagittal reformatting. COMPARISON: None. FINDINGS: Image quality: Excellent. Bones: Severe lower lumbar facet arthropathy. Grade 1 anterolisthesis L4 on L5. Mild degenerative changes of bilateral sacroiliac joint. The sacrum is intact. Status post right total hip arthroplasty, with a long acetabular screw. There is large periprosthetic lucency in the posterior acetabulum, with associated cortical breakthrough/nondisplaced fracture. There is inferior subluxation of the right acetabular cup with respect to the right acetabulum. Status post left total hip arthroplasty, in near anatomic alignment. No hardware complication. Soft tissues: Extensive surgical clips in the pelvis. Streak artifact, limits evaluation of the pelvis. The prostate is not definitely visualized, and may be surgically absent. No bowel obstruction in the pelvis. Moderate calcification of the distal abdominal aorta. No pelvic lymphadenopathy. Small bilateral fat containing inguinal hernia. Small fat containing umbilical hernia. Small amount of fluid about the right greater trochanter, likely postprocedural. IMPRESSION: 1. Status post right total hip arthroplasty. 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 Inferior subluxation of the right acetabular cup with respect to the right acetabulum. 2. Status post left total hip arthroplasty. No hardware complication. Dictated by: Robyn Davis M.D. on 04/06/2024 at 17:07 Approved by: Robyn Davis M.D. on 04/06/2024 at 17:20
== END ==
PROVIDERS: Family Provider Family Medicine; PCP Family Medicine; Referring Provider Orthopaedic Surgery Orthopaedic Trauma; Visit Provider Orthopaedic Surgery Orthopaedic Trauma
DX: T84.020A Dislocation of internal right hip prosthesis, initial encounter (principal); M53.3 Sacrococcygeal disorders, not elsewhere classified; M47.816 Spondylosis without myelopathy or radiculopathy, lumbar region; M43.16 Spondylolisthesis, lumbar region; I70.0 Atherosclerosis of aorta; K40.20 Bilateral inguinal hernia, without obstruction or gangrene, not specified as recurrent; K42.9 Umbilical hernia without obstruction or gangrene; Z96.642 Presence of left artificial hip joint
CPT/HCPCS: 73700

== ENCOUNTER → 2024-04-09 09:30 | Outpatient (CLI) | payer MEDICARE, OTHER, SELFPAY ==
[2024-04-09 10:53] LABS: Add Manual Diff / Slide Review NO; Basophils Absolute Auto 0 /uL (0-100); Basophils Percent Auto 0.6 % (0-2); Eosinophils Absolute Auto 200 /uL (0-450); Eosinophils Percent Auto 2.6 % (2-4); Hematocrit 39.4 % (41-53); Hemoglobin 13.4 g/dL (13.5-17.5); Lymphocytes Absolute Auto 1500 /uL (1100-4500); Lymphocytes Percent Auto 20.9 % (25-40); Mean Corpuscular HGB Conc 34.1 % (30-36); Mean Corpuscular Hemoglobin 34.4 PG (26-34); Mean Corpuscular Volume 100.9 fL (80-100); Monocytes Absolute Auto 800 /uL (0-900); Monocytes Percent Auto 10.9 % (3-14); Neutrophils Absolute Auto 4600 /uL (1500-7000); Platelet Count 296 X10^3/uL (150-400); Red Blood Cell Count 3.91 X10^6/uL (4.5-5.9); Red Cell Distribution Width 14.6 % (11.6-14.8); White Blood Cell Count 7.1 X10^3/uL (4.5-11.0)
[2024-04-09 11:16] LABS: Alanine Aminotransferase 22 IU/L (<50); Albumin 4.1 g/dL (3.5-5.0); Albumin Globulin Ratio 1.8 (1.0-2.8); Alkaline Phosphatase 65 U/L (38-126); Aspartate Aminotransferase 24 IU/L (17-59); BUN Creatinine Ratio 15.4 (6-22); Bilirubin Total 0.6 mg/dL (0.2-1.3); Blood Urea Nitrogen 19 mg/dL (9-20); C-Reactive Protein Quant < 0.5 mg/dL (<1.0); Calcium 9.8 mg/dL (8.4-10.2); Carbon Dioxide 30 mmol/L (22-32); Chloride 103 mmol/L (98-107); Estimated Glomerular Filt Rate 59 mL/min (>60); Globulin 2.3 g/dL (1.7-4.1); Glucose 96 mg/dL (80-110); HEMOLYSIS < 15 (0-50); Potassium 4.8 mmol/L (3.4-5.1); Sodium 138 mmol/L (137-145); Total Protein 6.4 g/dL (6.3-8.2); Uric Acid 8.6 mg/dL (3.5-8.5)
[2024-04-09 11:17] LABS: Erythrocyte Sedimentation Rate 11 MM/HR (0-15)
== END ==
PROVIDERS: Family Provider Family Medicine; PCP Family Medicine; Referring Provider Internal Medicine Rheumatology; Visit Provider Internal Medicine Rheumatology
DX: L40.50 Arthropathic psoriasis, unspecified (principal)
CPT/HCPCS: 36415; 80053; 84550; 85025; 85651; 86140

== ENCOUNTER → 2024-04-20 08:18 | Outpatient (CLI) | payer MEDICARE, OTHER, SELFPAY ==
--- NOTE | 2024-04-20 | DI.MRI.S_ITS ---
PROCEDURE: MR HIP RT WO CON INDICATIONS: Pain in right hip TECHNIQUE: Noncontrast coronal T1 spin echo and STIR through the bony pelvis. Coronal and axial T2 fast spin echo with fat saturation, sagittal T1 spin echo, and oblique axial T2 fast spin echo with fat saturation through the hip. COMPARISON: None. FINDINGS: Image quality: Excellent. Bones and joints: Patient is status post prior bilateral total hip arthroplasty with susceptibility artifacts limits evaluation. No obvious marrow edema. No gross acute periprosthetic fracture. Degenerative disc disease in visualized lower lumbar spine is seen. No suspicious bony lesions. Tendons and ligaments: There is distal right gluteus medius tendinosis at its insertion on greater trochanter. The right gluteus minimus tendon is intact. Moderate amount of fluid is seen distending right trochanteric bursa concerning for bursitis. The nearby proximal iliotibial band also appears intact. The iliopsoas tendon appears intact, without adjacent bursal fluid collections or evidence for impingement syndrome. The origin of the hamstring tendon is intact at the ischial tuberosity. Labrum and cartilage: Not applicable. Soft tissues: Visualized muscles demonstrate normal bulk and internal signal. Quadratus femoris muscle demonstrates no internal edema to suggest ischiofemoral impingement. The proximal sciatic neurovascular bundle appears normal adjacent to the hamstring tendons. No free pelvic fluid. Bladder wall thickness is normal. Genitourinary structures and bowel loops appear normal where visualized. IMPRESSION: 1. Prior bilateral total hip arthroplasty with significant susceptibility artifacts. No gross marrow edema. No acute fracture or dislocation. No suspicious bony lesions. 2. Distal right gluteus medius tendinosis. Moderate to large amount of fluid within trochanteric bursa concerning for bursitis. No other muscle or tendon signal abnormalities. 3. No gross pelvic soft tissue abnormalities. Dictated by: Bruce Willson M.D. on 04/20/2024 at 15:04 Approved by: Bruce Willson M.D. on 04/20/2024 at 15:13
== END ==
LOC: MRI 08:20
PROVIDERS: Family Provider Family Medicine; PCP Family Medicine; Referring Provider Orthopaedic Surgery Orthopaedic Trauma; Visit Provider Orthopaedic Surgery Orthopaedic Trauma
DX: M25.551 Pain in right hip (principal); M67.951 Unspecified disorder of synovium and tendon, right thigh; Z96.643 Presence of artificial hip joint, bilateral
CPT/HCPCS: 73721

== ENCOUNTER → 2024-09-29 13:15 | Outpatient (CLI) | payer MEDICARE, OTHER, SELFPAY ==
--- NOTE | 2024-09-29 13:18 | DI.CT.S_ITS ---
PROCEDURE: CT HIP RIGHT WITHOUT CON INDICATIONS: HX RT HIP REPLACEMENT TECHNIQUE: Noncontrast 3 mm axial sections acquired through the bony pelvis, with coronal and sagittal reformatting. COMPARISON: [facility], CT, CT HIP RIGHT WITHOUT CON, 04/06/2024, 10:31. FINDINGS: Image quality: Excellent. Compared to the prior exam progressed low-attenuation, lucency surrounding the right acetabular cup now extends cephalad, laterally as well as inferiorly and posteriorly suspicious for osteolysis, follow-up is needed if no intervention performed. Nonspecific asymmetric edema soft tissue prominence surrounding the right total hip arthroplasty predominantly anterior and anterolateral laterally. Femoral component is unchanged without significant periprosthetic low-attenuation. Evidence of prior prostatectomy partially imaged. No CT evidence of displaced fracture or dislocation. Umbilical hernia 2.5 cm containing fat only unchanged. Mild to moderate calcifications of the aorta and iliac vessels unchanged. IMPRESSION: Progressed low attenuation surrounding the right total hip arthroplasty acetabular cup suspicious for osteolysis. Particle disease infectious/inflammatory process or other cause. Follow-up is needed if no intervention performed. Other findings as above. Dictated by: Angelo Huff M.D. on 09/29/2024 at 16:59 Approved by: Angelo Huff M.D. on 09/29/2024 at 17:15
== END ==
LOC: CT 13:17
PROVIDERS: Family Provider Family Medicine; PCP Family Medicine; Referring Provider Orthopaedic Surgery Orthopaedic Trauma; Visit Provider Orthopaedic Surgery Orthopaedic Trauma
DX: Z96.641 Presence of right artificial hip joint (principal); Z09 Encounter for follow-up examination after completed treatment for conditions other than malignant neoplasm; K42.9 Umbilical hernia without obstruction or gangrene; I70.0 Atherosclerosis of aorta
CPT/HCPCS: 73700

== ENCOUNTER → 2024-12-31 10:24 | Outpatient (CLI) | payer MEDICARE, OTHER, SELFPAY ==
[2024-12-31 11:05] LABS: Add Manual Diff / Slide Review NO; Basophils Absolute Auto 100 /uL (0-100); Eosinophils Absolute Auto 100 /uL (0-450); Eosinophils Percent Auto 1.2 % (2-4); Hematocrit 32.8 % (41-53); Lymphocytes Absolute Auto 1200 /uL (1100-4500); Lymphocytes Percent Auto 12.3 % (25-40); Mean Corpuscular HGB Conc 33.4 % (30-36); Mean Corpuscular Volume 95.8 fL (80-100); Monocytes Absolute Auto 700 /uL (0-900); Monocytes Percent Auto 7.8 % (3-14); Neutrophils Absolute Auto 7300 /uL (1500-7000); Neutrophils Percent Auto 77.7 % (50-75); Platelet Count 401 X10^3/uL (150-400); Red Blood Cell Count 3.43 X10^6/uL (4.5-5.9); Red Cell Distribution Width 16.7 % (11.6-14.8); White Blood Cell Count 9.4 X10^3/uL (4.5-11.0)
== END ==
LOC: LAB 10:28
PROVIDERS: Family Provider Family Medicine; PCP Family Medicine
DX: K26.9 Duodenal ulcer, unspecified as acute or chronic, without hemorrhage or perforation (principal)
CPT/HCPCS: 36415; 85025

== ENCOUNTER → 2025-01-24 15:52 | Outpatient (CLI) | payer MEDICARE, OTHER, SELFPAY | PROVIDERS: PCP Family Medicine; Visit Provider Chiropractor | DX: R30.0 Dysuria (principal) | CPT/HCPCS: 87086 ==

== ENCOUNTER → 2025-02-04 16:19 | Outpatient (CLI) | payer MEDICARE, OTHER, SELFPAY ==
[2025-02-04 17:13] LABS: Add Manual Diff / Slide Review NO; Hematocrit 33.8 % (41-53); Hemoglobin 11.6 g/dL (13.5-17.5); Lymphocytes Absolute Auto 1500 /uL (1100-4500); Mean Corpuscular HGB Conc 34.4 % (30-36); Mean Corpuscular Hemoglobin 31.9 PG (26-34); Mean Corpuscular Volume 92.8 fL (80-100); Platelet Count 334 X10^3/uL (150-400)
== END ==
PROVIDERS: PCP Family Medicine; Referring Provider Surgery; Visit Provider Surgery
DX: K26.3 Acute duodenal ulcer without hemorrhage or perforation (principal); Z68.27 Body mass index [BMI] 27.0-27.9, adult
CPT/HCPCS: 36415; 85025; 99213

== ENCOUNTER → 2025-03-12 09:22 | Outpatient (CLI) | payer MEDICARE, OTHER, SELFPAY ==
--- NOTE | 2025-03-12 | DI.RAD.S_ITS ---
PROCEDURE: XR HIP W PEL IF DONE RT 2V INDICATIONS: FAILURE OF RIGHT HIP ARTHROPLASTY TECHNIQUE: AP pelvis with lateral view(s) of the right hip(s). COMPARISON: [facility], , XR HIP W PEL IF DONE RT 2V, 03/02/2021, 14:20. FINDINGS: Bones: Bilateral hip arthroplasties. Prior ORIF fixation at the right pubic root. No fractures or dislocations. No hardware fracture is identified. No suspicious bony lesions. Soft tissues: The visualized bowel gas pattern is normal. No suspicious soft tissue calcifications. IMPRESSION: Right pubic root fixation. Bilateral hip arthroplasties. No hardware failure is identified. Dictated by: Hank Franks M.D. on 03/13/2025 at 21:52 Approved by: Hank Franks M.D. on 03/13/2025 at 21:57
[2025-03-12 10:16] LABS: Add Manual Diff / Slide Review NO; Hematocrit 36.2 % (41-53); Hemoglobin 12.2 g/dL (13.5-17.5); Lymphocytes Absolute Auto 1400 /uL (1100-4500); Mean Corpuscular HGB Conc 33.6 % (30-36); Mean Corpuscular Hemoglobin 31.3 PG (26-34); Mean Corpuscular Volume 92.9 fL (80-100); Platelet Count 297 X10^3/uL (150-400)
[2025-03-12 11:42] LABS: Microalbumi Creatinin Ratio Ur 4.0 ug/mg CR (<30)
== END ==
PROVIDERS: PCP Family Medicine; Referring Provider Orthopaedic Surgery Orthopaedic Trauma; Visit Provider Orthopaedic Surgery Orthopaedic Trauma
DX: Z00.00 Encounter for general adult medical examination without abnormal findings (principal); T84.010D Broken internal right hip prosthesis, subsequent encounter; M25.551 Pain in right hip; I10 Essential (primary) hypertension; I65.23 Occlusion and stenosis of bilateral carotid arteries; E78.2 Mixed hyperlipidemia; G89.29 Other chronic pain; L40.50 Arthropathic psoriasis, unspecified; K26.3 Acute duodenal ulcer without hemorrhage or perforation; M51.369 Other intervertebral disc degeneration, lumbar region without mention of lumbar back pain or lower extremity pain; Z96.643 Presence of artificial hip joint, bilateral
CPT/HCPCS: 36415; 73502; 82043; 82570; 85025

== ENCOUNTER 2025-03-24 06:59 | Day surgery (SDC) | payer MEDICARE, OTHER, SELFPAY ==
--- NOTE | 2025-03-24 | PATH_ITS ---
[facility] Accession Number: [id number] No. of containers..02 Tissue . 01 Material submitted: . PART A: duodenum - DUODENUM BIOPSY PART B: gastrointestinal site - ANTRUM BIOPSY . 01 Diagnosis: A. DUODENUM, BIOPSY: Duodenal mucosa with no diagnostic abnormality. Negative for active inflammation, features of sprue, dysplasia, or malignancy. . B. GASTRIC ANTRUM, BIOPSY: Gastric antral mucosa with no diagnostic abnormality. No evidence of Helicobacter organisms on H/E stain. Negative for intestinal metaplasia. Negative for dysplasia or malignancy. [facility] 04/01/2025 1550 Local . 01 Electronically signed: . Saurabh Johnson MD, PhD, Pathologist NPI- [id number] . 01 Gross description: . Received are two formaolin-filled containers both labeled with the patient's name. . A. In a container labeled 1. Duodenum, are two fragments of medeiros, soft tissue which range in size from 0.1 x 0.1 x 0.1 cm to 0.2 x 0.2 x 0.2 cm. All fragments are totally submitted in cassette A1. B. In a container labeled 2. Antrum, are two carty-medeiros fragments of medeiros, soft tissue which range in size from 0.2 x 0.2 x 0.2 cm to 0.3 x 0.3 x 0.2 cm. All fragments are totally submitted in cassette B1. ([id number]) /[facility] 03/30/2025 0616 Local . 01 Pathologist provided ICD-10: D64.9 . 01 CPT . 433055, 895011 Specimen Comment: A courtesy copy of this report has been sent to [phone] Performed at: 01 [facility] [address] [address], [place], [place] [id number] MD Horacio Lott MD Phone: [phone]
[2025-03-24 07:28] VITALS: BP 152/72; PULSE 68; RESP 15; TEMP 36.1; O2SAT 95
[2025-03-24] MEDS: LACTATED RINGERS 1,000 ML 42 ML IV (07:40)
--- NOTE | 2025-03-24 08:06 | PM.HP.IH.1 ---
History of Present Illness History of Present Illness Date Patient Seen: 03/24/25 Time Patient Seen: 08:06 Chief complaint: EGD w/poss bx Narrative: Konrad is an 84-year-old man who has a history of duodenal ulcers going back to November when he was hospitalized at [facility] after hip surgery. His hemoglobin remains below 12. See the office note from February for details. [facility] Medical History (Updated 03/03/25 @ 08:34 by Mychal Becker MD) Peptic ulcer of duodenum Erectile dysfunction Hyperlipidemia Neuroforaminal stenosis of lumbosacral spine Lumbar spinal stenosis Disc degeneration, lumbar Spondylosis of lumbar joint Chronic right hip pain Essential tremor Hypertension Psoriatic arthritis Social History (Updated 03/03/25 @ 08:23 by Ilda Rosa MA) marital status: number of children: 3 household members: spouse lives independently: Yes housing: house pets and animals: Yes education level: master's degree occupational status: unemployed current occupational exposures/hazards: No special rogelio needs: No leisure activities: clubs, music and reading seatbelt use: always working smoke detector in home: Yes fire extinguisher in home: Yes carbon monox detector in home: Yes do you feel safe at home: Yes Smoking Status: Never smoker during the past year weight has: decreased > 10 lbs well-balanced diet: daily or most days daily servings fruits/ve-4 caffeine: No eating out: 1-3 times/week Type(s) of exercise: walking, occasional exercise and resistance training frequency: 1-2 times per week duration: < 15 minutes/day Meds Home Medications and Allergies Home Medications ?Medication ?Instructions ?Recorded ?Confirmed ?Type folic acid 1 mg tablet 1 mg PO DAILY combat methotrexate 02/27/23 03/03/25 History side effec clobetasol 0.05 % scalp solution topical 01/24/25 03/03/25 History methotrexate sodium 25 mg/mL 25 mg IM WEEKLY 01/24/25 03/24/25 History injection solution pantoprazole 40 mg tablet,delayed 40 mg PO DAILY 02/04/25 03/03/25 History release lisinopril 20 1 tab PO DAILY #90 tabs 03/03/25 03/24/25 Rx mg-hydrochlorothiazide 25 mg tablet pravastatin 40 mg tablet 40 mg PO DAILY #90 tabs 09/18/25 Rx Allergies Allergy/AdvReac Type Severity Reaction Status Date / Time oxycodone AdvReac Intermediate gi upset Verified 03/03/25 08:24 Exam Vital Signs (past 8 hours): - 03/24/25 07:28 Temperature 97.0 F L Pulse Rate 68 Respiratory Rate 15 Blood Pressure 152/72 H Pulse Oximetry 95 Oxygen Delivery Method Room Air Oxygen Delivery Method Room Air Const General: healthy appearing and No acute distress Assessment & Plan Assessment and plan (1) Peptic ulcer of duodenum: Status: Acute Plan We will proceed with an esophagogastroduodenoscopy. Time-Based Coding :: [TOTAL MINUTES] spent with patient and on the chart (including review of chart, obtaining history, exam, reviewing outside data, placing orders, documenting exam and treatment plan, and counseling patient) on [DATE]. 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
--- NOTE | 2025-03-24 08:33 | PM.OP.EGD ---
Operative Date/Time/Diagnoses Date of procedure: 03/24/25 Time of procedure: 08:33 Pre-op diagnosis: 1. History of duodenal ulcers 2. Anemia Post-op diagnosis: same Procedure & Clinicians Study performed: Esophagogastroduodenoscopy Same procedure(s) as scheduled: Yes Surgeon: Sen Garcia Anesthesia Type: MAC +/- Procedure Notes Procedure in detail: Surgeon: Sen Garcia MD Anesthesia: Shayy Hines CRNA A timeout was performed. A bite blocked was placed. The patient was positioned in the left lateral decubitus position. Anesthesia was administered. The endoscope was inserted through the bite block and passed through the esophagus and stomach and into the duodenum. The duodenal mucosa appeared normal. No ulcers were noted. The scope was withdrawn into the duodenal bulb and again no ulcers were noted. Random biopsies were taken with cold forceps from the duodenal mucosa. The scope was withdrawn into the stomach. No ulcerations or latasha gastritis was noted. Random biopsies were taken from the antrum with cold forceps. The rest of the stomach was normal. The scope was retroflexed and a small hiatal hernia was noted. The scope was withdrawn into the esophagus and no other abnormalities were seen. The remainder of the esophagus was normal. The scope was withdrawn. The patient was awakened and brought to recovery. Sedation time: 5 minutes Findings: Grossly normal esophagus, stomach and duodenum Post-procedure Disposition: PACU
[2025-03-24 08:34] VITALS: BP 129/65; PULSE 54; RESP 15; TEMP 36.3; O2SAT 98
[2025-03-24 08:39] VITALS: BP 125/66; PULSE 52; RESP 16; O2SAT 98
[2025-03-24 08:44] VITALS: BP 142/72; PULSE 72; RESP 16; TEMP 36.2; O2SAT 98
[2025-03-24 08:54] VITALS: BP 145/74; PULSE 75; RESP 16; TEMP 36.2; O2SAT 98
== END 2025-03-24 09:03 | disposition home or self-care (01) ==
PROVIDERS: PCP Family Medicine; Referring Provider Family Medicine; Visit Provider Surgery
PROC: 0DJ08ZZ Inspection of Upper Intestinal Tract, Via Natural or Artificial Opening Endoscopic (ICD-10-PCS; CPT 43239; principal; 2025-03-24 08:15)
DX: Z87.19 Personal history of other diseases of the digestive system (principal); D64.9 Anemia, unspecified; K44.9 Diaphragmatic hernia without obstruction or gangrene
CPT/HCPCS: 43239; J2704

== ENCOUNTER → 2025-03-28 15:18 | Outpatient (CLI) | payer MEDICARE, OTHER, SELFPAY ==
[2025-03-28 16:38] LABS: Add Manual Diff / Slide Review NO; Hematocrit 35.6 % (41-53); Hemoglobin 11.9 g/dL (13.5-17.5); Lymphocytes Absolute Auto 1000 /uL (1100-4500); Mean Corpuscular HGB Conc 33.4 % (30-36); Mean Corpuscular Hemoglobin 31.1 PG (26-34); Mean Corpuscular Volume 93.3 fL (80-100); Platelet Count 272 X10^3/uL (150-400)
[2025-03-28 17:02] LABS: Blood Urea Nitrogen 21 mg/dL (9-20); Calcium 9.0 mg/dL (8.4-10.2); Carbon Dioxide 27 mmol/L (22-32); Chloride 98 mmol/L (98-107); Estimated Glomerular Filt Rate > 60 mL/min (>60); Glucose 103 mg/dL (70-99); HEMOLYSIS < 15 (0-50); Potassium 4.6 mmol/L (3.4-5.1); Sodium 134 mmol/L (137-145)
== END ==
PROVIDERS: PCP Family Medicine; Referring Provider Orthopaedic Surgery Orthopaedic Trauma; Visit Provider Orthopaedic Surgery Orthopaedic Trauma
DX: Z96.641 Presence of right artificial hip joint (principal)
CPT/HCPCS: 36415; 80048; 85025; 85651; 86140